=== PATIENT | male | born 1980 | race African-American/Black ===

== ENCOUNTER 2022-06-27 16:16 | Outpatient (RCR) | payer OTHER | END 2022-06-28 | disposition home or self-care (01) | PROVIDERS: ATTEND Registered Nurse Critical Care Medicine | DX: M25.551 Pain in right hip (principal); M54.41 Lumbago with sciatica, right side; I10 Essential (primary) hypertension; R74.01 Elevation of levels of liver transaminase levels; E11.9 Type 2 diabetes mellitus without complications ==

== ENCOUNTER 2022-07-04 16:20 | Outpatient (RCR) | payer OTHER | END 2022-07-28 | disposition home or self-care (01) | PROVIDERS: ATTEND Registered Nurse Critical Care Medicine | DX: M25.551 Pain in right hip (principal); M54.41 Lumbago with sciatica, right side; I10 Essential (primary) hypertension; R74.01 Elevation of levels of liver transaminase levels; E11.9 Type 2 diabetes mellitus without complications ==

== ENCOUNTER → 2022-07-16 | Outpatient (CLI) | payer OTHER ==
--- NOTE | 2022-07-16 15:52 | Diagnostic Imaging Report ---
EXAMINATION: Magnetic resonance imaging of the pelvis and right hip without contrast DATE: July 16, 2022. COMPARISON: None. INDICATION: 42-year-old male, chronic right hip pain. TECHNIQUE: Magnetic Resonance Imaging sequences were performed of the pelvis and right hip without contrast. TENDONS AND MUSCLES: The gluteus dragan muscles and their origins and insertions are intact bilaterally. The tendons and muscles of the greater trochanter - gluteus minimus, piriformis and gluteus medius - are intact bilaterally. Both common hamstring attachments on the ischial tuberosities are intact and the extensor muscles of the thigh are intact. The visualized portions of the flexors and adductor muscles of the thigh and their attachments on the pelvis and hips are intact. Both iliopsoas and iliacus muscles are intact. The bilateral iliopsoas tendons are intact. HIPS AND SACROILIAC JOINTS: There is a subchondral cyst in the right anterior acetabulum. There is no identified fluid-filled labral tear or paralabral cyst. There is no right hip joint effusion. The left hip joint is unremarkable in appearance. The sacroiliac joints are unremarkable. LUMBAR SPINE: The visible portions of the lumbar spine are unremarkable on limited assessment. BONE: The bones all have normal configuration. The bone marrow signal is within normal limits. Specifically, negative for fracture, osteomyelitis, osteonecrosis, or marrow replacing process. BURSAE AND SOFT TISSUES: The bursae and soft tissues surrounding the pelvis and hips are within normal limits. IMPRESSION: 1. Mild osteoarthritis the right hip with subchondral cyst in the right anterior acetabulum. No identified fluid-filled labral tear or paralabral cyst. No hip joint effusion. 2. No acute fracture, bone contusion, or evidence of osteonecrosis. 3. Intact muscles and tendons. Dictated by: Dictated on workstation # [id number]
== END ==
LOC: RAD 14:27
PROVIDERS: ATTEND Registered Nurse Critical Care Medicine
DX: M16.11 Unilateral primary osteoarthritis, right hip (principal); M71.351 Other bursal cyst, right hip; I10 Essential (primary) hypertension; M54.41 Lumbago with sciatica, right side; J02.9 Acute pharyngitis, unspecified; H66.012 Acute suppurative otitis media with spontaneous rupture of ear drum, left ear; Z20.822 Contact with and (suspected) exposure to COVID-19
CPT/HCPCS: 73721